=== PATIENT | male | born 2000 | race Two or more races ===

== ENCOUNTER 2025-02-05 01:51 | Emergency (ER) | payer SELFPAY ==
[2025-02-05 02:00] VITALS: BMI 24.2
--- NOTE | 2025-02-05 02:12 | EDNOTE_ITS ---
ED Medical Clearance RME/HPI General Chief complaint: Medical Clearance Stated complaint: HALF-WAY CLEARANCE RME / HPI RME / HPI Narrative: Dr. Craig?s Main ED Evaluation: Unknown male BIB PPD presents to the ED for a medical clearance. Per PPD, patient was brought in due to his blood pressure being too high. When asked, patient states he does not know why he's here. Patient does not have any medical complaints at this time. Patient denies any headache, dizziness, N/V or any other associated symptoms. Review of Systems Review of Systems Systems Reviewed: All systems reviewed, normal except as documented ED Exam Narrative Physical exam: GENERAL APPEARANCE: alert and oriented x 4, well-developed, well-nourished, no acute distress VITALS: All vitals were reviewed and the pulse ox is % on room air, which is normal according to my interpretation. HEENT: normocephalic, atraumatic NECK: supple LUNGS: no respiratory distress, normal effort HEART: good peripheral perfusion ABDOMEN: non distended EXTREMITIES: atraumatic NEUROLOGIC: awake; alert and oriented x4; cranial nerves II-XII grossly intact PSYCHIATRIC: appropriate mood and affect SKIN: warm, dry, normal color; no rashes Course Quality Measures none Medical Clearance MDM Narrative MDM Narrative:: Scribe Attestation: 02/05/25 - Neeta Anglin am scribing for and in the presence of Dr. Craig. Patient data External records reviewed:: [facility] previous records (Unknown previous visits due to the patient not providing his name or date of .) Clinical information provided by:: patient and law enforcement Social determinants that could affect healthcare access:: none Patient has the following chronic illnesses:: unknown How is presenting disease/condition affected by chronic disease/condition?: no chronic disease Evaluation data The following diagnostics were reviewed and interpreted by me:: other (specify) (none) Lab and/or radiology exams considered but not ordered:: none Interpretation Summary: none Medications / Prescriptions Medications or Prescriptions considered but not ordered:: none Medication administrations:: none Consultations Consultation(s) initiated? (list below): No Diagnosis Medical Clearance Differential Diagnosis: other (hypertension, stress reaction, drug abuse, alcohol abuse) Most likely diagnosis given after review of the tests above:: see clinical impression below Admission Indicated Admission indicated?: not indicated Admission Request Was there a request for admission?: No Disposition Plan Disposition Plan: Discharge Discharge Attestation Discharge Attestation: The patient and all family members were given an opportunity to ask questions and understood the discharge instructions. Discharge instructions specifically effects, indications for sooner follow up or return to the emergency department, and the expected course of current diagnosis. Patient condition: Stable Discharge Plan Plan Patient Disposition: [facility]/Court/Law Discharge Disposition comment: Okay to book Problem List Clinical Impression: Elevated blood pressure reading, Tachycardia, Medical clearance for incarceration Patient/Caregiver Discharge Instructions Print Language: Hungarian
== END 2025-02-05 02:35 ==
LOC: SERX 03:16
PROVIDERS: Emergency Provider Emergency Medicine
DX: Z02.89 Encounter for other administrative examinations (principal); R03.0 Elevated blood-pressure reading, without diagnosis of hypertension; R00.0 Tachycardia, unspecified
CPT/HCPCS: 99281